=== PATIENT | female | born 1965 | race Caucasian/White ===

== ENCOUNTER 2023-03-14 06:11 | Emergency (ER) | payer OTHER ==
[~2023-03-14] VITALS: Ht 167.6 cm; Wt 87.0 kg
[~2023-03-14 06:11] MED LIST: CELLCEPT250 MG PO; COZAAR50 MG PO; FAMOTIDINE40 MG PO; GLIPIZIDE XL2.5 MG PO; LIPITOR10 MG PO; MAGNESIUM OXID400 MG PO; MULTI VITAMIN1 EACH PO; PROGRAF0.5 MG PO; VITAMIN D31000 UNIT PO
[2023-03-14] MEDS ORDERED: TRIBENZOR 20-51 EACH PO (06:35)
[2023-03-14] MEDS ORDERED: VICTOZA 2-0.6 MG/0.1 INJ (06:36)
[2023-03-14] MEDS ORDERED: FARXIGA5 MG PO (06:37)
[2023-03-14] MEDS ORDERED: ASPIRIN81 MG PO (06:38)
[2023-03-14 07:07] LABS: INFLUENZA B NAA NEGATIVE (NEGATIVE); RESPIRATORY SYNCYTIAL VIR NAA POSITIVE (NEGATIVE)
[2023-03-14 07:32] VITALS: BP 129/78
== END 2023-03-14 07:32 | disposition home or self-care (01) ==
LOC: ED 06:11
PROVIDERS: Family Medicine
DX: J06.9 Acute upper respiratory infection, unspecified (principal); B97.4 Respiratory syncytial virus as the cause of diseases classified elsewhere; Z20.822 Contact with and (suspected) exposure to COVID-19; E11.9 Type 2 diabetes mellitus without complications; I10 Essential (primary) hypertension; Z88.2 Allergy status to sulfonamides; Z88.1 Allergy status to other antibiotic agents; Z88.0 Allergy status to penicillin; Z79.899 Other long term (current) drug therapy; Z79.82 Long term (current) use of aspirin
CPT/HCPCS: 71045; 87502; 99283-25; C9803; U0002

== ENCOUNTER 2025-04-12 11:56 | Day surgery (SDC) | payer OTHER ==
[~2025-04-12 11:56] MED LIST changes: +ASPIRIN81 MG PO; +CEPHALEXIN500 M1 PO; +FARXIGA5 MG PO; +IBLOOD GLUCOSE TEST STRIP 1 EA TEST VI PRN; +LACTATED RINGER'S 1,000 ML IV SCH; +LIDOCAINE 1% W/ EPI 1:200,000 30 ML SDV ONE; +LIDOCAINE HCL 1% 5 ML SDV INJ ONE; +TRIBENZOR 20-51 EACH PO; +VICTOZA 2-0.6 MG/0.1 INJ
--- NOTE | 2025-04-13 09:34 | OR ---
[facility] [address] [place], [place] [address] Signed DATE OF OPERATION: 04/12/2025 SURGEON: Kandace Briones MD PREOPERATIVE DIAGNOSES: 1. Left breast mass, 3 o'clock position suspicious for malignancy. 2. History of right breast carcinoma, status post mastectomy (1995). POSTOPERATIVE DIAGNOSES: 1. Left breast mass, 3 o'clock position suspicious for malignancy. 2. History of right breast carcinoma, status post mastectomy (1995). PROCEDURE: Left ultrasound-guided core biopsy of breast mass. ANESTHESIA: 0.25% Marcaine with epinephrine 2 mL. INDICATION: This 59-year-old white woman is well known to me from the past having undergone right mastectomy as well as chemotherapy for right-sided breast cancer in 1995. She has done well all these many years. She more recently had a screening mammogram, which showed a mass in the remaining left breast. A palpable lesion was noted. Due to scheduling issues, the radiology department could not see her for a few weeks following that, and on that basis, she self-referred for further consideration of this. The palpable mass is suspicious to me and I have recommended biopsy by core technique, possibly using ultrasound assistance. The risk of bleeding, infection, need for additional treatment and so forth were reviewed with her. She understands, wished to proceed. FINDINGS: The lesion was firm and highly suspicious in my opinion. The ultrasonographic image did show the lesion to transgress the layers of the breast tissue. Three good core biopsies were obtained. She did have discomfort on the biopsies despite local anesthesia. DESCRIPTION OF PROCEDURE: In the semi-recumbent position, left breast was prepared with chlorhexidine solution and draped sterilely. The [employer] ultrasound device had been used to more fully evaluate the lesion, though it was palpable otherwise. 0.25% Marcaine with epinephrine injected locally and a small incision made with a tip of the 11 blade. Needle and ultrasound device with a tip in a sheath and a sterile cover were used to allow for three separate Electronically Signed By: KANDACE BRIONES MD 04/13/25 0934 PATIENT NAME: RAVEN SILVA OPERATIVE REPORT DATE OF : 65 REPORT #: [id number] PHYSICIAN: KANDACE BRIONES MD PCP: JEAN FUENTES DO REPORT IS CONFIDENTIAL AND NOT TO BE RELEASED WITHOUT AUTHORIZATION [facility] [address] [place] [id number] Signed core biopsies of the palpable mass. There was some minimal bleeding, which was secured with pressure. A Band-Aid was applied. Three good core samples were obtained it is noted. She tolerated the procedure well. MD BLAYNE Bautista/DONOVAN /[id number] cc: Jean Fuentes DO Copies: JEAN FUENTES DO ~ Electronically Signed By: KANDACE BRIONES MD 04/13/25 0934 PATIENT NAME: RAVEN SILVA YVETTE OPERATIVE REPORT DATE OF : 65 REPORT #: [id number] PHYSICIAN: KANDACE BRIONES MD PCP: JEAN FUENTES DO REPORT IS CONFIDENTIAL AND NOT TO BE RELEASED WITHOUT AUTHORIZATION
--- NOTE | 2025-04-14 11:37 | PATH ---
[facility] [address] [facility] [place], [place] [address] Signed SPECIMEN(S): A LEFT BREAST MASS BIOPSY SPECIMEN SOURCE: A. LEFT BREAST MASS BIOPSY CLINICAL HISTORY: Mass in the left breast, possibly 3 cm lower outer aspect. 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 - See checklist. 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 COMMENT: As part of the [facility], the case has been reviewed by a second Pathologist (SHERRON). A diagnostic alert was initiated by Manoj Cruz MD and will be documented separately. J MICROSCOPIC EXAMINATION: Histologic sections of all submitted blocks are examined by light microscopy. These findings, together with the gross examination, support the pathologic diagnosis. PATIENT NAME: RAVEN SILVA PATHOLOGY DATE OF : 65 REPORT #: [id number] PHYSICIAN: PERI PATHOLOGY PCP: TERRANCE FUENTES DO REPORT IS CONFIDENTIAL AND NOT TO BE RELEASED WITHOUT AUTHORIZATION [facility] [address] [facility] [place] [place] [address] Signed Cytokeratin AE1/3 and E-cadherin immunostains are performed with appropriate controls on block A1 and are positive in the cells of concern supporting the diagnosis. A smooth muscle myosin immunostain is performed with appropriate controls on block A1 and is negative in the area of concern supporting the diagnosis. JVR GROSS DESCRIPTION: The specimen, labeled and designated "Jose Luis, left breast mass biopsy," is received in formalin and consists of 3 cores of yellow-ragland soft tissue measuring up to 1.5 cm in length by 0.1 cm in diameter. The specimens are inked green and submitted entirely in cassette (A1). Cold Ischemic Time: 35 minutes Formalin Fixation Time: 9 hours AB (under the direct supervision of a pathologist) The Gross Description was prepared using a voice recognition system. The report was reviewed for accuracy; however, sound-alike word errors, addition and/or deletions may occur. If there is any question about this report, please contact Client Services. ADDITIONAL NOTES: Immunohistochemical and/or in situ hybridization studies if performed in this case included appropriate positive controls that reacted as expected. This test was developed and its performance characteristics determined by [facility]. It has not been cleared or approved by the U.S. Food and Drug Administration. The FDA has determined that such clearance or approval is not necessary. This test is used for clinical purposes. It should not be regarded as investigational or for research. [facility] is certified under the Clinical Laboratory Improvement Amendments of 1988 (CLIA) as qualified to perform high complexity clinical laboratory testing. PERFORMING LABORATORY: Technical component was performed by [facility], [address] [place] [id number] (CLIA# [id number]). Professional interpretation was performed by [facility] [place] [facility] - [address] [place] [address] (CLIA#: [id number]). Diagnostician: Manoj Cruz MD Pathologist PATIENT NAME: RAVEN SILVA YVETTE PATHOLOGY DATE OF : 65 REPORT #: [id number] PHYSICIAN: PERI PATHOLOGY PCP: TERRANCE FUENTES DO REPORT IS CONFIDENTIAL AND NOT TO BE RELEASED WITHOUT AUTHORIZATION [address] [address] Signed Electronically Signed 04/14/2025 Copies: ~ PATIENT NAME: RAVEN SILVA YVETTE PATHOLOGY DATE OF : 65 REPORT #: [id number] PHYSICIAN: PERI PATHOLOGY PCP: TERRANCE FUENTES DO REPORT IS CONFIDENTIAL AND NOT TO BE RELEASED WITHOUT AUTHORIZATION
== END 2025-04-12 13:22 | disposition home or self-care (01) ==
LOC: DS 11:56 → OPS 11:56 → DS 12:30 → OPS 13:22
PROVIDERS: ATTEND Surgery
PROC: 0H9U3ZX Drainage of Left Breast, Percutaneous Approach, Diagnostic (ICD-10-PCS; principal; 2025-04-12)
DX: C50.812 Malignant neoplasm of overlapping sites of left female breast (principal); I10 Essential (primary) hypertension; E11.9 Type 2 diabetes mellitus without complications; Z85.3 Personal history of malignant neoplasm of breast; Z80.3 Family history of malignant neoplasm of breast; Z94.0 Kidney transplant status; Z88.1 Allergy status to other antibiotic agents; Z88.0 Allergy status to penicillin; Z88.2 Allergy status to sulfonamides; Z79.899 Other long term (current) drug therapy; Z79.84 Long term (current) use of oral hypoglycemic drugs; Z90.710 Acquired absence of both cervix and uterus; Z98.890 Other specified postprocedural states